=== PATIENT | female | born 1980 | race Hispanic/Latino ===

== ENCOUNTER 2023-01-11 23:05 | Emergency (ER) | payer MEDICAID, OTHER ==
[~2023-01-11] VITALS: Ht 170.2 cm; Wt 140.2 kg
[2023-01-11 23:05] VITALS: BP 164/99; PULSE 102; RESP 18; O2SAT 96
== END 2023-01-12 01:15 | disposition left against medical advice (07) ==
LOC: EDH 23:05
DX: R06.02 Shortness of breath (principal); Z53.21 Procedure and treatment not carried out due to patient leaving prior to being seen by health care provider
CPT/HCPCS: 99281

== ENCOUNTER 2024-07-22 17:30 | Emergency (ER) | payer SELFPAY ==
[~2024-07-22] VITALS: Ht 167.6 cm; Wt 144.7 kg
[2024-07-22 17:59] LABS: BASOPHILS # (AUTO) 0.11 K/uL (0.00-0.20); BASOPHILS % (AUTO) 0.9 % (0.0-5.0); EOSINOPHILS # (AUTO) 0.51 K/uL (0.00-0.70); EOSINOPHILS % (AUTO) 4.2 % (0.0-8.0); HEMATOCRIT 38.9 % (36-48); IMMATURE GRANULOCYTE ABSOLUTE 0.09 K/uL (0-1); LYMPHOCYTES # (AUTO) 3.2 K/uL (1.0-4.8); LYMPHOCYTES % (AUTO) 25.9 % (21.0-51.0); MEAN CORPUSCULAR HEMOGLOBIN 26.8 pg (27.0-33.0); MEAN CORPUSCULAR HGB CONC 31.9 g/dL (32.0-36.0); MEAN CORPUSCULAR VOLUME 84.2 fL (79-99); MONOCYTES # (AUTO) 0.9 K/uL (0.1-1.0); MONOCYTES % (AUTO) 7.2 % (3.0-13.0); NEUTROPHILS # (AUTO) 7.5 K/uL (1.8-7.7); NEUTROPHILS % (AUTO) 61.1 % (40.0-77.0); PLATELET COUNT (AUTO) 386 K/uL (130-400); RED BLOOD CELL COUNT(AUTO) 4.62 MIL/uL (4.00-5.50); RED CELL DISTRIBUTION WIDTH 14.5 % (11.0-15.5); WHITE BLOOD COUNT (AUTO) 12.3 K/uL (4.8-10.8)
--- NOTE | 2024-07-22 18:09 | EKG ---
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
[2024-07-22 18:11] LABS: POTASSIUM 3.6 mmol/L (3.5-5.1)
[2024-07-22 18:19] LABS: MAGNESIUM 1.8 mg/dL (1.80-2.40)
--- NOTE | 2024-07-22 18:28 | HMCIMG ---
PORTABLE CHEST RADIOGRAPH INDICATION: sob COMPARISON: None FINDINGS: night monitor leads overlie the field of view. Heart size is normal. The pulmonary vascularity and ira appear normal. No abnormal pulmonary parenchymal opacity or consolidation identified. No significant pleural effusion noted. No pneumothorax detected. IMPRESSION: No radiographic evidence for any acute cardiopulmonary process.
[2024-07-22 19:17] LABS: AMPHET/METH SCREEN,URINE NEGATIVE (NEGATIVE); BARBITURATE SCREEN, URINE NEGATIVE (NEGATIVE); BENZODIAZEPINES SCREEN,URINE NEGATIVE (NEGATIVE); CANNABINOID SCREEN,URINE POSITIVE (NEGATIVE); COCAINE SCREEN,URINE NEGATIVE (NEGATIVE); OPIATE SCREEN,URINE NEGATIVE (NEGATIVE); PHENCYCLIDINE SCREEN,URINE NEGATIVE (NEGATIVE)
--- NOTE | 2024-07-22 19:19 | NUR ---
TOOK OVER PATIENT AT THIS TIME
[2024-07-22 19:21] LABS: APPEARANCE,URINE CLEAR (CLEAR); BILIRUBIN,URINE NEGATIVE (NEGATIVE); COLOR,URINE YELLOW (YELLOW); GLUCOSE, URINE (UA) NEGATIVE (NEGATIVE); KETONES,URINE NEGATIVE (NEGATIVE); LEUKOCYTE ESTERASE ,URINE NEGATIVE Leu/uL (NEGATIVE); NITRATE,URINE NEGATIVE (NEGATIVE); OCCULT BLOOD,URINE NEGATIVE (NEGATIVE); PROTEIN,URINE NEGATIVE (NEGATIVE); UROBILINOGEN,URINE 0.2 mg/dL (0.2-1.0)
[2024-07-22 19:27] LABS: ADD UA MICROSCOPIC YES
[2024-07-22 19:28] LABS: BACTERIA,URINE FEW /HPF (None Seen); MUCUS,URINE RARE LPF (None Seen); SQUAMOUS EPITHELIAL CELL,UR FEW /HPF (0-2)
[2024-07-22 20:31] VITALS: BP 128/72; PULSE 73; RESP 16; TEMP 98.6; O2SAT 98
--- NOTE | 2024-07-22 20:55 | HMCIMG ---
US VENOUS DOPPLER UNILATERAL HISTORY: Pain COMPARISON: None TECHNIQUE: Right upper extremity venous Doppler ultrasound study was performed. FINDINGS: The right subclavian, axillary, and brachial veins are visualized. Normal flow with augmentation and compressibilities are demonstrated. Right cephalic and basilic veins are patent. IMPRESSION: 1. No evidence of deep venous thrombosis is seen.
--- NOTE | 2024-07-22 21:07 | ERN ---
General Chief Complaint: Palpitations Stated Complaint: PALPITATIONS, RT ARM PAIN Time Seen by MD: 17:34 Time Seen by Midlevel: 17:34 Source: patient History of Present Illness Initial Comments The patient is a 44-year-old female with a past medical history of anxiety, depression, and high cholesterol presenting to the emergency department for evaluation of right arm pain. Patient reports donating plasma yesterday. She states that while at the plasma donation center she was injured by the blood pressure cuff. During the procedure of plasma donation she developed pain and tingling to her right arm. She was told that a physician would be evaluating her there but after she developed the pain they stopped the plasma donation and sent her home. The following day they follow up with her but no physician ever saw the patient. She was advised to report to the ER if she had any concerns. Today she reports noticing an increased amount of pain to the right arm. On her way to the hospital she developed chest pain and palpitations. Allergies: Coded Allergies: No Known Allergies (Unverified Allergy, Unknown, 07/22/24) Past Medical History Past Medical History: Anxiety, Depression, High Cholesterol Past Surgical History: ROS Dictation CONSTITUTIONAL: Negative except for HPI HEAD/FACE: Negative except for HPI EENT: Negative except for HPI RESPIRATORY: Negative except for HPI GASTROINTESTINAL/ABDOMINAL: Negative except for HPI GENITOURINARY: Negative except for HPI MUSCULOSKELETAL: Negative except for HPI INTEGUMENTARY: Negative except for HPI NEUROLOGICAL/PSYCH: Negative except for HPI HEMATOLOGIC/LYMPHATIC: Negative except for HPI All Systems Negative, Except as noted above. 13 point review of systems assessed and all negative except for above. Physical Exam Physical Exam Dictation Vital Signs reviewed General Appearance: Alert, oriented x 3, no acute distress, well developed, nourished. Head and Face: non-traumatic. Eyes: PERRL, pink conjunctivas, eyelid no trauma, anterior chamber with arcus senilis. Ears: Pinnas intact and no signs of trauma or erythema ear canals clear and no discharge TM no erythema Nose: No discharge, no bleeding. Oropharynx: Mouth normal, tongue pink, pharynx clear,no erythema, tonsils no exudates, no abscesses noted, mucous membrane moist Neck: Supple, non-tender, no thyromegaly, no masses, no JVD, no bruits Breast:Deferred Chest:No tenderness, no crepitus, no paradoxical movement, no retractions Lungs:Clear, well-ventilated, symmetric, no rales, no wheezing, no rhonchi, no stridor, good breath sounds bilaterally Heart: Regular rate, regular rhythm, no murmur, no gallops Vascular: no peripheral edema, Abdomen: Soft, positive bowel sounds, nondistended, no guarding, nontender, no rebound, no masses no hepatomegaly, no splenomegaly, no Levy's sign, no hernias. Rectal: Deferred Genital: Deferred Neurological: Normal speech, motor function intact, sensory function intact Musculoskeletal: Neck nontender, full range of motion, back nontender, full range of motion, Extremities: nontender, full range of motion Skin: Color pink, dry, no turgor, no rash, no lacerations, no abrasions, no contusions. Lymphatic: Deferred Results Laboratory and Microbiology Lab and Micro Result Laboratory Tests Test 07/22/24 17:49 07/22/24 17:52 Urine Color YELLOW (YELLOW) Urine Appearance CLEAR (CLEAR) Urine pH 6.0 (5.0-8.0) Urine Specific [place] 1.026 (1.001-1.031) Urine Protein NEGATIVE mg/dL (NEGATIVE) Urine Glucose (UA) NEGATIVE mg/dL (NEGATIVE) Urine Ketones NEGATIVE mg/dL (NEGATIVE) Urine Occult Blood NEGATIVE (NEGATIVE) Urine Nitrate NEGATIVE (NEGATIVE) Urine Bilirubin NEGATIVE mg/dL (NEGATIVE) Urine Urobilinogen 0.2 mg/dL (0.2-1.0) Urine Leukocyte Esterase NEGATIVE [place]/uL Urine RBC 6-10 /HPF (0-1) H Urine WBC 2-5 /HPF (0-1) H Urine Squamous Epithelial Cells FEW /HPF (0-2) Urine Bacteria FEW /HPF (None Seen) Urine Opiates Screen NEGATIVE (NEGATIVE) Urine Barbiturates Screen NEGATIVE (NEGATIVE) Urine Phencyclidine Screen NEGATIVE (NEGATIVE) Urine Amphetamines Screen NEGATIVE (NEGATIVE) Urine Benzodiazepines Screen NEGATIVE (NEGATIVE) Urine Cocaine Screen NEGATIVE (NEGATIVE) Urine Marijuana (THC) Screen POSITIVE (NEGATIVE) H White Blood Count 12.3 K/uL (4.8-10.8) H Red Blood Count 4.62 MIL/uL (4.00-5.50) Hemoglobin 12.4 g/dL (12.0-16.0) Hematocrit 38.9 % (36-48) Mean Corpuscular Volume 84.2 fL (79-99) Mean Corpuscular Hemoglobin 26.8 pg (27.0-33.0) L Mean Corpuscular Hemoglobin Concent 31.9 g/dL (32.0-36.0) L Red Cell Distribution Width 14.5 % (11.0-15.5) Platelet Count 386 K/uL (130-400) Mean Platelet Volume 8.9 fL (7.5-10.5) Immature Granulocyte % (Auto) 0.7 % (0-1) Neutrophils (%) (Auto) 61.1 % (40.0-77.0) Lymphocytes (%) (Auto) 25.9 % (21.0-51.0) Monocytes (%) (Auto) 7.2 % (3.0-13.0) Eosinophils (%) (Auto) 4.2 % (0.0-8.0) Basophils (%) (Auto) 0.9 % (0.0-5.0) Neutrophils # (Auto) 7.5 K/uL (1.8-7.7) Lymphocytes # (Auto) 3.2 K/uL (1.0-4.8) Monocytes # (Auto) 0.9 K/uL (0.1-1.0) Eosinophils # (Auto) 0.51 K/uL (0.00-0.70) Basophils # (Auto) 0.11 K/uL (0.00-0.20) Absolute Immature Granulocyte (auto 0.09 K/uL (0-1) Nucleated Red Blood Cells 0.0 % (0.0-0.19) Sodium Level 137 mmol/L (136-145) Potassium Level 3.6 mmol/L (3.5-5.1) Chloride Level 103 mmol/L (101-111) Carbon Dioxide Level 29 mmol/L (21-32) Blood Urea Nitrogen 11 mg/dL (7-18) Creatinine 1.0 mg/dL (0.5-1.0) Glomerular Filtration Rate Calc 71 mL/min (>90) Random Glucose 96 mg/dL (70-105) Total Calcium 8.9 mg/dL (8.5-10.1) Magnesium Level 1.80 mg/dL (1.80-2.40) Total Creatine Kinase 82 U/L (21-232) Troponin I High Sensitivity 8.4 ng/L (4-50) Serum Test, Qualitative NEGATIVE (NEGATIVE) Labs Reviewed?: Yes MDM MDM: Differential diagnosis: DVT, hematoma, ACS There are no social concerns with this patient. Prescription drug management Prescriptions will include: Medical management and examination interpretation discussions were had by me with other qualified healthcare professionals as indicated for the patient's care. ED Course Orders Procedure Category Date Status Time 12 Lead Ekg Tracing- EKG 07/22/24 Complete Technical 17:43 Cbc With Differential LAB 07/22/24 Complete 17:43 Basic Metabolic Panel LAB 07/22/24 Complete 17:43 Magnesium LAB 07/22/24 Complete 17:43 Urinalysis Profile LAB 07/22/24 Complete 17:43 Drug Screen Urine LAB 07/22/24 Complete 17:43 Testing, LAB 07/22/24 Complete Serum Hcg 17:43 Chest 1vw RAD 07/22/24 Resulted 17:43 Cardiac Panel LAB 07/22/24 Complete 17:52 12 Lead Ekg Tracing- EKG 07/22/24 Logged Technical 18:11 Us Venous Doppler US 07/22/24 Resulted Unilateral 18:22 Vital Signs Date Time Temp Pulse Resp B/P (MAP) Pulse Ox O2 Delivery O2 Flow Rate FiO2 07/22/24 20:31 98.6 73 16 128/72 98 Room Air* 0 07/22/24 19:20 98.8 80 16 132/74 98 Room Air* 0 07/22/24 17:58 98.4 81 16 135/75 98 Room Air* 0 07/22/24 17:34 98.2 90 16 138/87 96 Room Air 0 [place] [id number] [address] IMAGING REPORT Signed PATIENT: RAHEEM AGUSTIN MR#: [id number] : 1980 SEX: F AGE: 44 LOCATION: [facility] ORDER 42 STATUS: REG ER REPORT#: [id number] SERVICE 42 REASON: sob ORDERING PHYSICIAN: CARLITO ARGUETA PROCEDURE: CXR1VW - CHEST 1VW PORTABLE CHEST RADIOGRAPH INDICATION: sob COMPARISON: None FINDINGS: air sampling and monitoring leads overlie the field of view. Heart size is normal. The pulmonary vascularity and ira appear normal. No abnormal pulmonary parenchymal opacity or consolidation identified. No significant pleural effusion noted. No pneumothorax detected. IMPRESSION: No radiographic evidence for any acute cardiopulmonary process. DICTATED BY: PAULIE BANKS MD DATE: 07/22/241823 ELECTRONICALLY SIGNED BY: PAULIE BANKS MD DATE: 07/22/241827 DX & DISP Disposition: Discharge Departure Impression: Primary Impression: Non-cardiac chest pain Additional Impressions: Palpitations, Marijuana use, Right arm pain Condition: Stable Additional Instructions: Your blood work today is unremarkable. Your kidney function is normal. You are not anemic. Your electrolytes are normal. Your kidney function is normal. Your cardiac enzymes are negative. Your urinalysis not show any evidence of infection. Your right arm ultrasound does not show any evidence of a deep vein thrombosis. Your chest x-ray does not show any acute abnormalities. Your physical examination is reassuring. There was no swelling or bruising noted during my examination. Follow up with your primary care doctor for further evaluation. No need for emergent intervention at this time as all of your blood work in cluding cardiac enzymes, chest x-ray, an ultrasound are normal. Referrals: ADIN REDDY (PCP) Time of Disposition: 21:05 I have reviewed the case, and I agree with, Diagnosis and Plan I performed the substantive portion of the visit. I have reviewed and personally made and approve the management plan that is documented in the note by myself or the МАРИНА. I acknowledge for responsibility for the patient's management plan. CARLITO ARGUETA Jul 22, 2024 21:07
--- NOTE | 2024-07-22 21:41 | NUR ---
Carlos Eduardo bryant in [place] - 07/22/24 at 2143 by LALY DOROTHY CALLED/PAPERWORK FAXED OVER AT THIS TIME
--- NOTE | 2024-07-23 17:23 | EKG ---
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
== END 2024-07-22 21:18 | disposition home or self-care (01) ==
LOC: EDH 17:30
DX: R07.89 Other chest pain (principal); R00.2 Palpitations; M79.601 Pain in right arm; F12.90 Cannabis use, unspecified, uncomplicated; F32.A Depression, unspecified; F41.9 Anxiety disorder, unspecified; E78.00 Pure hypercholesterolemia, unspecified; Z79.899 Other long term (current) drug therapy
CPT/HCPCS: 36415; 71045; 80048; 80305; 81001; 82550; 83735; 84484; 84703; 85025; 93005; 93971; 99285